=== PATIENT | male | born 1990 | race Caucasian/White ===

== ENCOUNTER 2024-10-10 15:43 | Emergency (ER) | payer OTHER, SELFPAY ==
[2024-10-10 15:45] VITALS: BP 140/91
--- NOTE | 2024-10-10 17:10 | ED.GENMED ---
History of Present Illness
General
Chief Complaint: Back Pain
Source: patient
Time Seen by Provider: 10/10/24 16:51
History of Present Illness
History of Present Illness:
This patient is a 34-year-old male presents emergency department complaints of left mid back pain has been present for about a month. Patient works in [employer] and states that he does a lot of lifting but does not recall a specific event
precipitating this. He first noticed it when he woke up from a nap. Since that time, he says that the pain waxes and wanes, and seems to be worse when he sits or slouches over and better with standing. He denies associated rash, fever, chills,
nausea, vomiting, abdominal pain, anterior chest pain, urinary symptoms such as dysuria, urgency, frequency, hematuria. He denies bowel or bladder incontinence, numbness, tingling, focal weakness. His stools have been normal. He went to an urgent
care 2 days ago and was told he may have a UTI and prescribed Keflex. He was contacted today and told that his follow-up urine testing is negative for an infection and he should discontinue the antibiotic. Of note, patient is in recovery and as
such we will avoid medications at risk for dependency. Pain is localized to the left mid lower thorax area without radiation. He denies midline back or neck pain.
Past History
Past History
ED Past Medical History: Other (MRSA)
ED Past Surgical History: Orthopedic
Social History
Tobacco: Former smoker
Alcohol: None
Drug: Former user
Personal:
Living: with family
Employment: Employed
Phy Exam
Physical Exam
Physical Exam:
GENERAL: Alert , in no apparent distress
EYE: pupils equal and reactive
NECK: Supple, no significant adenopathy.
ENT: o/p clr, mmm.
CARDIAC: Regular rate and rhythm .
LUNGS: Clear breath sounds bilaterally, no acute respiratory distress, no wheezes/rales/rhonchi
ABDOMEN: Soft, without focal tenderness, no r/g, no cvat
NEUROLOGICAL: Alert and oriented, no focal neuro deficits
SKIN: Warm and dry, skin intact.
MUSCULOSKELETAL: No edema, well perfused.
PSYCH: Normal and appropriate interaction.
BACK: no midline ttp, no rash/swellin/redness/skin changes. Points to mid back, aprrox rib area 10-11, Neg SLR
Course
Orders/Labs/Results
Orders:
Orders
10/10/24 17:10
Ketorolac [Toradol] 15 mg IM NOW STA
CR Chest - 2 Views Urgent
Comment:
Reason For Exam: L post thorax pain
US Renal Only W/O Bladder Urgent
Comment:
Reason For Exam: L sided pain
Vital Signs
Initial and Last Documented VS:
Initial Vital Signs
Temp Pulse Resp BP Pulse Ox
98.3 F 79 16 140/91 98
10/10/24 15:45 10/10/24 15:45 10/10/24 15:45 10/10/24 15:45 10/10/24 15:45
Last Documented Vital Signs
Temp Pulse Resp BP Pulse Ox
98.3 F 64 16 124/76 100
10/10/24 15:45 10/10/24 21:19 10/10/24 21:19 10/10/24 21:19 10/10/24 21:19
*Pulse Oximetry
SaO2: 98
Oxygen Mode of Delivery: Room air
Patient hypoxic: no
*Critical Care Note
Total Time (30-74mins, 75-104mins- exclusive of procedures): Not Applicable
Update Note
Update Note:
Patient presents to the Emergency Department with back pain
Number and Complexity of Problems Addressed at the Encounter
� Chronic conditions affecting care:
� Acute Exacerbation and/or Progression of Chronic Illness:
� Differential Diagnosis includes: But not limited to muscular strain, kidney stone, shingles, pleural effusion, etc. etc.
Amount and/or Complexity of Data to be Reviewed and Analyzed
� I performed an independent evaluation of and my interpretation is:
EKG:
CT:
Xrays: Chest x-ray read by radiology NAD
Laboratory Studies:
Other: Ultrasound kidneys NAD
� Review of other/old records reveals:
� Clinical information was obtained by an independent historian:
� Prescriptions/Medications Considered but not given:
� Further testing considered but not performed:
Risk of Complications and/or Morbidity or Mortality of Patient Management
� Social determinants of health affecting care:
� Discussion with other providers (PCP, Hospitalists, Consultants, etc):
� Escalation of care including admission/observation vs risk of discharge considered: Low suspicion for PE or other more emergent etiology for symptoms, no dyspnea, no tachycardia, no pleuritic chest pain, etc. No rash to
suggest shingles. Patient is extremely comfortable here and pain-free status post dose of Toradol here. Discussed with patient portance of follow-up and reasons to return to the ER. Given copy of report
ED Attending Note
-
Portions of this chart may have been created with voice recognition software.� Occasional wrong word or��sound alike� substitutions may have occurred due to the inherent limitations of voice recognition software.
Discharge Plan
Departure
Patient Disposition: Home (Routine Discharge)
Date of Disposition: 10/10/24
Time of Disposition: 21:30
Patient with high blood pressure during this ER visit?: Yes
Condition: Good
Discharge Problem:
Back pain
Instructions: Upper Back Pain (DC), BLOOD PRESSURE
Prescriptions:
New
ketorolac 10 mg tablet
10 mg PO Q8H 4 Days Qty: 12 0RF
Referrals:
Juventino Roman DO [Family Provider, Family Practice] - Follow up in 2-3 days
Activity Restrictions/Additional Instructions:
IF YOU DEVELOP INCREASING NEW OR PERSISTENT PAIN, RASH, TROUBLE BREATHING, CHEST PAIN, SWELLING, NUMBNESS, OR OTHER WORRISOME SIGNS, PLEASE RETURN TO THE ER IMMEDIATELY!
Interventions
Interventions:
*Risk Screen - Suicide Last Done: 10/10/24 15:45
*General Assessment Last Done: 10/10/24 16:53
*Neglect/Abuse Screening Last Done: 10/10/24 15:45
*ED- Fall Risk Assessment Last Done: 10/10/24 16:53
*ED COVID-19 Vaccine History Last Done: 10/10/24 16:53
ED-Musculoskeletal Assessment Last Done: 10/10/24 16:53
Discharge Date and Time
Print Language: [place]
[2024-10-10] MEDS: TORADOL 15 MG IM (17:20)
[2024-10-10 18:03] VITALS: BP 134/87
[2024-10-10 21:19] VITALS: BP 124/76
== END 2024-10-10 22:00 | disposition home or self-care (01) ==
LOC: EMR 15:43
PROVIDERS: EMERGENCY PHYSICIAN Emergency Medicine; FAMILY PHYSICIAN Family Medicine
DX: M54.6 Pain in thoracic spine (principal); R03.0 Elevated blood-pressure reading, without diagnosis of hypertension; Z86.14 Personal history of Methicillin resistant Staphylococcus aureus infection; Z87.891 Personal history of nicotine dependence; Z88.1 Allergy status to other antibiotic agents; Z88.2 Allergy status to sulfonamides
CPT/HCPCS: 99284; 96372; 71046; 76775